=== PATIENT | female | born 1940 | race Caucasian/White ===

== ENCOUNTER 2021-06-17 14:15 | Inpatient (IN) | payer OTHER ==
[2021-06-17 16:18] LABS: BASO % 0.4 % (0-2.0); EOS % 0.1 % (0-4.5); HEMATOCRIT 35.7 % (32.4-45.2); HEMOGLOBIN 11.9 GM/dL (10.7-15.3); LYMPH % 12.6 % (8-40); MCH 29.7 pg (25.7-33.7); MCHC 33.2 g/dl (32.0-36.0); MEAN CELL VOLUME 89.4 fl (80-96); MEAN PLT VOLUME 9.2 fl (7.5-11.1); MONO % 10.5 % (3.8-10.2); NEUT % 76.4 % (42.8-82.8); PLATELET COUNT 138 10^3/uL (134-434); RDW 15.7 % (11.6-15.6); WHITE BLOOD COUNT 7.6 K/mm3 (4.0-10.0)
[2021-06-17 17:34] LABS: BLOOD UREA NITROGEN 54.3 mg/dL (7-18); CREATININE 1.4 mg/dL (0.55-1.3); PLATELET ESTIMATE DECREASED
[2021-06-17 17:35] LABS: ALBUMIN 2.7 g/dl (3.4-5.0); BILIRUBIN,TOTAL 1.1 mg/dL (0.2-1); CALCIUM 13.5 mg/dL (8.5-10.1); TOT PROT 6.6 g/dl (6.4-8.2)
[2021-06-17] MEDS ORDERED: SODIUM CHLORIDE 1,000 ML IV ONE (18:21)
[2021-06-17] MEDS ORDERED: ENOXAPARIN NA (PORCINE) 60 MG/0.6 ML DISP.SYRIN SQ SCH (21:00)
[2021-06-17] MEDS ORDERED: ENOXAPARIN NA (PORCINE) 60 MG/0.6 ML DISP.SYRIN SQ ONE ×2 (21:00→22:29)
[2021-06-17] MEDS ORDERED: ACETAMINOPHEN 325 MG TABLET (FP) PO PRN (23:28)
[2021-06-17] MEDS ORDERED: SODIUM CHLORIDE 1,000 ML IV SCH (23:30)
[2021-06-17] MEDS ORDERED: ENOXAPARIN NA (PORCINE) 30 MG/0.3 ML DISP.SYRIN SQ SCH (23:30)
[2021-06-18 00:53] LABS: URINE APPEARANCE CLEAR; URINE COLOR DK YELLOW
[2021-06-18 00:54] LABS: URINE BILIRUBIN NEGATIVE (NEGATIVE); URINE GLUCOSE (UA) NEGATIVE (NEGATIVE); URINE KETONE TRACE (NEGATIVE); URINE LEUK ESTERASE NEGATIVE (NEGATIVE); URINE NITRITE NEGATIVE (NEGATIVE); URINE PROTEIN TRACE (NEGATIVE)
[2021-06-18 01:08] LABS: MAGNESIUM 3.1 mg/dL (1.8-2.4); PHOSPHOROUS 3.6 mg/dL (2.5-4.9)
[2021-06-18] MEDS ORDERED: POLYETHYLENE GLYCOL (HEALTHYLAX) 3350 17 GM PACKET ONE ×2 (06:11→17:49)
[2021-06-18] MEDS: POLYETHYLENE GLYCOL (HEALTHYLAX) 3350 17 GM PACKET PO SCH ×2 (06:26→14:30)
[2021-06-18] MEDS: LEVOTHYROXINE NA 25 MCG TABLET (FP) PO SCH (07:05)
[2021-06-18] MEDS ORDERED: LEVOTHYROXINE NA 25 MCG TABLET (FP) ONE (07:16)
[2021-06-18 08:49] LABS: BLOOD UREA NITROGEN 49.9 mg/dL (7-18); CHLORIDE 111 mmol/L (98-107); CO2 25 mmol/L (21-32); CREATININE 1.1 mg/dL (0.55-1.3); GLUCOSE,RANDOM 81 mg/dL (74-106); SODIUM 147 mmol/L (136-145)
[2021-06-18 08:50] LABS: ALBUMIN 2.2 g/dl (3.4-5.0); ALK PHOS 75 U/L (45-117); BILIRUBIN,TOTAL 0.8 mg/dL (0.2-1); CALCIUM 11.2 mg/dL (8.5-10.1); MAGNESIUM 2.9 mg/dL (1.8-2.4); SGOT/AST 24 U/L (15-37); SGPT/ALT 10 U/L (13-61); TOT PROT 5.3 g/dl (6.4-8.2)
[2021-06-18 09:07] LABS: PHOSPHOROUS 3.1 mg/dL (2.5-4.9)
[2021-06-18 09:36] LABS: HEMOGLOBIN 9.6 GM/dL (10.7-15.3); RBC 3.23 M/mm3 (3.60-5.2); WHITE BLOOD COUNT 5.3 K/mm3 (4.0-10.0)
[2021-06-18 09:37] LABS: HEMATOCRIT 29.1 % (32.4-45.2); MCH 29.8 pg (25.7-33.7); MCHC 32.9 g/dl (32.0-36.0); MEAN CELL VOLUME 90.3 fl (80-96); MEAN PLT VOLUME 8.8 fl (7.5-11.1); PLATELET COUNT 99 10^3/uL (134-434)
[2021-06-18] MEDS: SODIUM CHLORIDE 1,000 ML IV SCH (10:00)
[2021-06-18] MEDS ORDERED: PIPERACILLIN/TAZOB 2.25 GM 2.25 GM in DEXTROSE 5%-WATER - 50 ML IVPB SCH (15:00)
[2021-06-18] MEDS ORDERED: PIPERACILLIN/TAZOB 2.25 GM 2.25 GM/50 ML BAG IVPB ONE (17:50)
[2021-06-19] MEDS ORDERED: ENOXAPARIN NA (PORCINE) 60 MG/0.6 ML DISP.SYRIN SQ ONE (00:34)
[2021-06-19] MEDS: POLYETHYLENE GLYCOL (HEALTHYLAX) 3350 17 GM PACKET PO SCH ×3 (00:57→15:05)
[2021-06-19] MEDS: ENOXAPARIN NA (PORCINE) 60 MG/0.6 ML DISP.SYRIN SQ SCH (00:57)
[2021-06-19] MEDS ORDERED: PIPERACILLIN/TAZOB 3.375 GM 3.375 GM/50 ML BAG IVPB ONE (05:40)
[2021-06-19] MEDS: PIPERACILLIN/TAZOB 3.375 GM 3.375 GM in DEXTROSE 5%-WATER - 50 ML IVPB SCH ×3 (05:48→17:33)
[2021-06-19 07:11] LABS: ALBUMIN 2.4 g/dl (3.4-5.0); BLOOD UREA NITROGEN 42.9 mg/dL (7-18); MAGNESIUM 2.6 mg/dL (1.8-2.4)
[2021-06-19 07:13] LABS: URIC ACID 8.8 mg/dL (2.6-7.2)
[2021-06-19 07:15] LABS: TOT PROT 5.8 g/dl (6.4-8.2)
[2021-06-19] MEDS: SODIUM CHLORIDE 1,000 ML IV SCH ×2 (07:37→15:05)
[2021-06-19] MEDS: LEVOTHYROXINE NA 25 MCG TABLET (FP) PO SCH (07:37)
[2021-06-19] MEDS ORDERED: DEXTROSE 5%-WATER - 50 ML IVPB ONE ×2 (08:57→17:30)
[2021-06-19] MEDS ORDERED: PIPERACILLIN/TAZOBACTAM 3.375 GM VIAL IVPB ONE ×2 (08:57→17:29)
[2021-06-19 14:02] LABS: BASO % 0.1 % (0-2.0); EOS % 0.1 % (0-4.5); HEMATOCRIT 32.9 % (32.4-45.2); HEMOGLOBIN 10.9 GM/dL (10.7-15.3); LYMPH % 11.4 % (8-40); MCH 29.9 pg (25.7-33.7); MCHC 33.2 g/dl (32.0-36.0); MEAN CELL VOLUME 90.1 fl (80-96); MONO % 8.3 % (3.8-10.2); NEUT % 80.1 % (42.8-82.8); PLATELET COUNT 129 10^3/uL (134-434); RBC 3.64 M/mm3 (3.60-5.2); RDW 16.3 % (11.6-15.6); WHITE BLOOD COUNT 5.8 K/mm3 (4.0-10.0)
[2021-06-19 15:38] VITALS: BMI 24.6
[2021-06-20] MEDS: POLYETHYLENE GLYCOL (HEALTHYLAX) 3350 17 GM PACKET PO SCH ×4 (04:38→21:47)
[2021-06-20] MEDS: ENOXAPARIN NA (PORCINE) 60 MG/0.6 ML DISP.SYRIN SQ SCH ×2 (04:40→21:48)
[2021-06-20] MEDS ORDERED: DEXTROSE 5%-WATER - 50 ML IVPB ONE ×3 (04:41→16:51)
[2021-06-20] MEDS ORDERED: PIPERACILLIN/TAZOBACTAM 3.375 GM VIAL IVPB ONE ×3 (04:41→16:51)
[2021-06-20] MEDS: PIPERACILLIN/TAZOB 3.375 GM 3.375 GM in DEXTROSE 5%-WATER - 50 ML IVPB SCH ×3 (04:51→17:01)
[2021-06-20] MEDS: LEVOTHYROXINE NA 25 MCG TABLET (FP) PO SCH (06:23)
[2021-06-20 08:22] LABS: BASO % 0.2 % (0-2.0); EOS % 0.3 % (0-4.5); HEMATOCRIT 31.3 % (32.4-45.2); HEMOGLOBIN 10.4 GM/dL (10.7-15.3); LYMPH % 12.2 % (8-40); MCH 29.8 pg (25.7-33.7); MCHC 33.1 g/dl (32.0-36.0); MONO % 7.8 % (3.8-10.2); NEUT % 79.5 % (42.8-82.8); PLATELET COUNT 105 10^3/uL (134-434); RBC 3.48 M/mm3 (3.60-5.2); RDW 15.8 % (11.6-15.6); WHITE BLOOD COUNT 4.5 K/mm3 (4.0-10.0)
[2021-06-20 08:34] LABS: ALBUMIN 2.4 g/dl (3.4-5.0); CALCIUM 11.4 mg/dL (8.5-10.1); MAGNESIUM 2.6 mg/dL (1.8-2.4)
[2021-06-20 08:37] LABS: CREATININE 1.1 mg/dL (0.55-1.3)
[2021-06-20 08:39] LABS: BILIRUBIN,TOTAL 1.1 mg/dL (0.2-1); TOT PROT 5.5 g/dl (6.4-8.2)
[2021-06-20 08:43] LABS: BLOOD UREA NITROGEN 33.9 mg/dL (7-18)
[2021-06-20] MEDS ORDERED: POTASSIUM CHLORIDE TABS 20 MEQ TABLET.ER (FP) PO ONE (09:05)
[2021-06-20] MEDS: SODIUM CHLORIDE 1,000 ML IV SCH (09:58)
[2021-06-20] MEDS: SODIUM CHLORIDE 0.45% 1,000 ML IV SCH (13:45)
[2021-06-20] MEDS: AMINO ACIDS/PROTEIN HYDROLYS 30 ML LIQUID.PKT PO SCH (18:31)
[2021-06-21] MEDS ORDERED: DEXTROSE 5%-WATER - 50 ML IVPB ONE ×2 (01:59→10:19)
[2021-06-21] MEDS ORDERED: PIPERACILLIN/TAZOBACTAM 3.375 GM VIAL IVPB ONE ×2 (01:59→10:19)
[2021-06-21] MEDS: PIPERACILLIN/TAZOB 3.375 GM 3.375 GM in DEXTROSE 5%-WATER - 50 ML IVPB SCH ×2 (03:14→12:27)
[2021-06-21 07:51] LABS: CALCIUM 10.7 mg/dL (8.5-10.1)
[2021-06-21 07:52] LABS: ALBUMIN 2.2 g/dl (3.4-5.0); BLOOD UREA NITROGEN 27.3 mg/dL (7-18)
[2021-06-21 07:56] LABS: BILIRUBIN,TOTAL 1.1 mg/dL (0.2-1); TOT PROT 5.1 g/dl (6.4-8.2)
[2021-06-21 08:01] LABS: MAGNESIUM 2.5 mg/dL (1.8-2.4)
[2021-06-21] MEDS ORDERED: METOPROLOL TARTRATE 25 MG TABLET (FP) PO SCH (10:00)
[2021-06-21] MEDS: LEVOTHYROXINE NA 25 MCG TABLET (FP) PO SCH (11:32)
[2021-06-21] MEDS: AMINO ACIDS/PROTEIN HYDROLYS 30 ML LIQUID.PKT PO SCH ×2 (12:30→16:41)
[2021-06-21] MEDS: POLYETHYLENE GLYCOL (HEALTHYLAX) 3350 17 GM PACKET PO SCH ×3 (12:31→22:27)
[2021-06-21] MEDS ORDERED: ACETAMINOPHEN 325 MG TABLET (FP) PO PRN (14:14)
[2021-06-21] MEDS: AMOX TR/POT CLAV 875MG/125MG TABLETS (FP) PO SCH (16:41)
[2021-06-21] MEDS: SODIUM CHLORIDE 0.45% 1,000 ML IV SCH ×2 (16:41→16:43)
[2021-06-21] MEDS ORDERED: PT OWN MED DRAWER 7, Y5N ONE (21:56)
[2021-06-21] MEDS: ENOXAPARIN NA (PORCINE) 60 MG/0.6 ML DISP.SYRIN SQ SCH (22:27)
[2021-06-21] MEDS: METOPROLOL TARTRATE 25 MG TABLET (FP) PO SCH (22:27)
[2021-06-22] MEDS: POLYETHYLENE GLYCOL (HEALTHYLAX) 3350 17 GM PACKET PO SCH ×3 (05:45→21:13)
[2021-06-22] MEDS: LEVOTHYROXINE NA 25 MCG TABLET (FP) PO SCH (06:00)
[2021-06-22] MEDS ORDERED: ZOLEDRONIC ACID 4 MG in SODIUM CHLORIDE 100 ML IVPB ONE ×2 (06:58→09:58)
[2021-06-22 07:56] LABS: BASO % 0.3 % (0-2.0); EOS % 0.5 % (0-4.5); HEMATOCRIT 26.9 % (32.4-45.2); LYMPH % 11.7 % (8-40); MCH 29.9 pg (25.7-33.7); MCHC 33.4 g/dl (32.0-36.0); MEAN CELL VOLUME 89.5 fl (80-96); MEAN PLT VOLUME 9.4 fl (7.5-11.1); MONO % 7.4 % (3.8-10.2); NEUT % 80.1 % (42.8-82.8); PLATELET COUNT 93 10^3/uL (134-434); RBC 3.01 M/mm3 (3.60-5.2); RDW 15.6 % (11.6-15.6); WHITE BLOOD COUNT 4.5 K/mm3 (4.0-10.0)
[2021-06-22 07:57] LABS: CHLORIDE 108 mmol/L (98-107); SODIUM 141 mmol/L (136-145)
[2021-06-22 07:59] LABS: CALCIUM 9.9 mg/dL (8.5-10.1)
[2021-06-22 08:00] LABS: ALBUMIN 2.1 g/dl (3.4-5.0); BLOOD UREA NITROGEN 22.4 mg/dL (7-18); CO2 23 mmol/L (21-32); GLUCOSE,RANDOM 77 mg/dL (74-106); MAGNESIUM 2.1 mg/dL (1.8-2.4)
[2021-06-22 08:03] LABS: CREATININE 0.7 mg/dL (0.55-1.3); SGOT/AST 31 U/L (15-37); SGPT/ALT 12 U/L (13-61)
[2021-06-22 08:04] LABS: BILIRUBIN,TOTAL 0.8 mg/dL (0.2-1)
[2021-06-22 08:05] LABS: TOT PROT 4.8 g/dl (6.4-8.2)
[2021-06-22 08:06] LABS: ALK PHOS 71 U/L (45-117)
[2021-06-22] MEDS: SODIUM CHLORIDE 0.45% 1,000 ML IV SCH (08:35)
[2021-06-22 08:36] LABS: ANION GAP 10 MMOL/L (8-16)
[2021-06-22] MEDS: AMINO ACIDS/PROTEIN HYDROLYS 30 ML LIQUID.PKT PO SCH ×2 (08:36→17:12)
[2021-06-22] MEDS: AMOX TR/POT CLAV 875MG/125MG TABLETS (FP) PO SCH ×2 (08:36→17:11)
[2021-06-22] MEDS: METOPROLOL TARTRATE 25 MG TABLET (FP) PO SCH ×2 (10:24→21:14)
[2021-06-22] MEDS: POTASSIUM CHLORIDE ORAL LIQUID 20 MEQ/15 ML PO SCH ×2 (10:24→15:44)
[2021-06-22] MEDS ORDERED: KCL 10 MEQ IVPB 10 MEQ/100 ML INFUS.BAG IVPB SCH (11:00)
[2021-06-22] MEDS ORDERED: POTASSIUM CHLORIDE TABS 20 MEQ TABLET.ER (FP) PO ONE (14:57)
[2021-06-22] MEDS: ENOXAPARIN NA (PORCINE) 60 MG/0.6 ML DISP.SYRIN SQ SCH (21:13)
[2021-06-22 22:02] LABS: BLOOD UREA NITROGEN 28.2 mg/dL (7-18); CALCIUM 11.3 mg/dL (8.5-10.1)
[2021-06-22 22:06] LABS: CREATININE 0.8 mg/dL (0.55-1.3)
[2021-06-22 23:45] LABS: PHOSPHOROUS 2.1 mg/dL (2.5-4.9)
[2021-06-23] MEDS: POLYETHYLENE GLYCOL (HEALTHYLAX) 3350 17 GM PACKET PO SCH ×3 (05:33→21:54)
[2021-06-23] MEDS: LEVOTHYROXINE NA 25 MCG TABLET (FP) PO SCH (06:00)
[2021-06-23 08:24] LABS: BASO % 0.3 % (0-2.0); EOS % 0.1 % (0-4.5); HEMOGLOBIN 9.3 GM/dL (10.7-15.3); LYMPH % 11.9 % (8-40); MCH 29.8 pg (25.7-33.7); MCHC 33.3 g/dl (32.0-36.0); MEAN CELL VOLUME 89.6 fl (80-96); MEAN PLT VOLUME 8.9 fl (7.5-11.1); MONO % 7.1 % (3.8-10.2); NEUT % 80.6 % (42.8-82.8); PLATELET COUNT 104 10^3/uL (134-434); RBC 3.13 M/mm3 (3.60-5.2); RDW 16.6 % (11.6-15.6); WHITE BLOOD COUNT 4.8 K/mm3 (4.0-10.0)
[2021-06-23 09:04] LABS: ALBUMIN 2.2 g/dl (3.4-5.0); BLOOD UREA NITROGEN 26.6 mg/dL (7-18); CALCIUM 11.1 mg/dL (8.5-10.1); MAGNESIUM 2.6 mg/dL (1.8-2.4)
[2021-06-23 09:07] LABS: CREATININE 0.7 mg/dL (0.55-1.3)
[2021-06-23 09:09] LABS: TOT PROT 5.1 g/dl (6.4-8.2)
[2021-06-23] MEDS: AMOX TR/POT CLAV 875MG/125MG TABLETS (FP) PO SCH ×2 (09:23→16:57)
[2021-06-23] MEDS: AMINO ACIDS/PROTEIN HYDROLYS 30 ML LIQUID.PKT PO SCH ×2 (09:23→16:57)
[2021-06-23] MEDS: METOPROLOL TARTRATE 25 MG TABLET (FP) PO SCH ×2 (09:24→21:54)
[2021-06-23] MEDS ORDERED: POTASSIUM CHLORIDE TABS 20 MEQ TABLET.ER (FP) PO ONE (10:39)
[2021-06-23] MEDS: POTASSIUM CHLORIDE TABS 20 MEQ TABLET.ER (FP) PO SCH ×2 (13:58→16:57)
[2021-06-23] MEDS: ENOXAPARIN NA (PORCINE) 60 MG/0.6 ML DISP.SYRIN SQ SCH (21:54)
[2021-06-24] MEDS: POLYETHYLENE GLYCOL (HEALTHYLAX) 3350 17 GM PACKET PO SCH ×3 (05:57→21:51)
[2021-06-24] MEDS: LEVOTHYROXINE NA 25 MCG TABLET (FP) PO SCH (06:02)
[2021-06-24 09:54] LABS: BASO % 0.4 % (0-2.0); EOS % 0.4 % (0-4.5); HEMATOCRIT 29.2 % (32.4-45.2); HEMOGLOBIN 9.6 GM/dL (10.7-15.3); LYMPH % 12.7 % (8-40); MCH 29.3 pg (25.7-33.7); MCHC 32.8 g/dl (32.0-36.0); MEAN CELL VOLUME 89.4 fl (80-96); MEAN PLT VOLUME 8.8 fl (7.5-11.1); MONO % 8.3 % (3.8-10.2); NEUT % 78.2 % (42.8-82.8); PLATELET COUNT 106 10^3/uL (134-434); RBC 3.27 M/mm3 (3.60-5.2); RDW 16.6 % (11.6-15.6); WHITE BLOOD COUNT 3.8 K/mm3 (4.0-10.0)
[2021-06-24] MEDS: AMINO ACIDS/PROTEIN HYDROLYS 30 ML LIQUID.PKT PO SCH ×2 (10:14→17:25)
[2021-06-24] MEDS: AMOX TR/POT CLAV 875MG/125MG TABLETS (FP) PO SCH ×2 (10:14→17:25)
[2021-06-24 10:17] LABS: ALBUMIN 2.1 g/dl (3.4-5.0); BLOOD UREA NITROGEN 25.3 mg/dL (7-18); CALCIUM 11.3 mg/dL (8.5-10.1); MAGNESIUM 2.6 mg/dL (1.8-2.4)
[2021-06-24] MEDS: METOPROLOL TARTRATE 25 MG TABLET (FP) PO SCH ×2 (10:17→21:59)
[2021-06-24 10:21] LABS: CREATININE 0.7 mg/dL (0.55-1.3)
[2021-06-24 10:22] LABS: BILIRUBIN,TOTAL 0.7 mg/dL (0.2-1)
[2021-06-24] MEDS ORDERED: PT OWN MED DRAWER 7, Y5N ONE (21:52)
[2021-06-24] MEDS: ENOXAPARIN NA (PORCINE) 60 MG/0.6 ML DISP.SYRIN SQ SCH (21:59)
[2021-06-24] MEDS: POTASSIUM CHLORIDE 10 MEQ in SODIUM CHLORIDE 0.45% 1,000 ML IVPB SCH (22:41)
[2021-06-25] MEDS: POLYETHYLENE GLYCOL (HEALTHYLAX) 3350 17 GM PACKET PO SCH ×3 (05:36→21:46)
[2021-06-25] MEDS: LEVOTHYROXINE NA 25 MCG TABLET (FP) PO SCH (06:46)
[2021-06-25 08:17] LABS: BASO % 0.5 % (0-2.0); EOS % 0.4 % (0-4.5); HEMATOCRIT 28.7 % (32.4-45.2); HEMOGLOBIN 9.6 GM/dL (10.7-15.3); LYMPH % 15.1 % (8-40); MCH 30.2 pg (25.7-33.7); MCHC 33.6 g/dl (32.0-36.0); MEAN CELL VOLUME 89.7 fl (80-96); MEAN PLT VOLUME 8.9 fl (7.5-11.1); MONO % 10.2 % (3.8-10.2); NEUT % 73.8 % (42.8-82.8); PLATELET COUNT 110 10^3/uL (134-434); RDW 16.4 % (11.6-15.6); WHITE BLOOD COUNT 3.3 K/mm3 (4.0-10.0)
[2021-06-25 08:43] LABS: CALCIUM 10.5 mg/dL (8.5-10.1)
[2021-06-25 08:44] LABS: ALBUMIN 2.1 g/dl (3.4-5.0); BLOOD UREA NITROGEN 19.7 mg/dL (7-18); MAGNESIUM 2.2 mg/dL (1.8-2.4)
[2021-06-25 08:47] LABS: CREATININE 0.7 mg/dL (0.55-1.3)
[2021-06-25 08:48] LABS: BILIRUBIN,TOTAL 0.7 mg/dL (0.2-1)
[2021-06-25] MEDS: AMINO ACIDS/PROTEIN HYDROLYS 30 ML LIQUID.PKT PO SCH ×2 (08:48→17:09)
[2021-06-25 08:49] LABS: TOT PROT 5.1 g/dl (6.4-8.2)
[2021-06-25] MEDS: AMOX TR/POT CLAV 875MG/125MG TABLETS (FP) PO SCH ×2 (08:49→17:09)
[2021-06-25] MEDS: METOPROLOL TARTRATE 25 MG TABLET (FP) PO SCH ×2 (09:28→22:09)
[2021-06-25] MEDS: POTASSIUM CHLORIDE 10 MEQ in SODIUM CHLORIDE 0.45% 1,000 ML IVPB SCH ×3 (14:01→22:37)
[2021-06-25] MEDS ORDERED: PT OWN MED DRAWER 7, Y5N ONE (21:49)
[2021-06-25] MEDS: ENOXAPARIN NA (PORCINE) 60 MG/0.6 ML DISP.SYRIN SQ SCH (22:09)
[2021-06-26] MEDS: POTASSIUM CHLORIDE 10 MEQ in SODIUM CHLORIDE 0.45% 1,000 ML IVPB SCH ×2 (05:47→11:57)
[2021-06-26] MEDS: LEVOTHYROXINE NA 25 MCG TABLET (FP) PO SCH (06:00)
[2021-06-26] MEDS: POLYETHYLENE GLYCOL (HEALTHYLAX) 3350 17 GM PACKET PO SCH ×3 (06:00→22:51)
[2021-06-26 07:17] LABS: HEMATOCRIT 28.3 % (32.4-45.2); HEMOGLOBIN 9.5 GM/dL (10.7-15.3); MCH 29.5 pg (25.7-33.7); MCHC 33.6 g/dl (32.0-36.0); MEAN CELL VOLUME 87.7 fl (80-96); MEAN PLT VOLUME 8.6 fl (7.5-11.1); PLATELET COUNT 95 10^3/uL (134-434); RBC 3.23 M/mm3 (3.60-5.2); RDW 16.8 % (11.6-15.6); WHITE BLOOD COUNT 3.2 K/mm3 (4.0-10.0)
[2021-06-26 07:33] LABS: BLOOD UREA NITROGEN 17.5 mg/dL (7-18); CALCIUM 9.4 mg/dL (8.5-10.1)
[2021-06-26 07:36] LABS: CREATININE 0.5 mg/dL (0.55-1.3)
[2021-06-26 07:38] LABS: BILIRUBIN,TOTAL 0.9 mg/dL (0.2-1); TOT PROT 4.9 g/dl (6.4-8.2)
[2021-06-26 09:07] LABS: ANISOCYTOSIS 0; HELMET CELLS 0; HOWELL-JOLLY BODIES 0; MACROCYTOSIS 0; OVALOCYTE 0; PLATELET ESTIMATE DECREASED; ROULEAU 0; SICKELED CELLS 0; TARGET CELLS 0; TEAR DROP CELLS 0; TOXIC GRANULATION 0
[2021-06-26] MEDS ORDERED: POTASSIUM CHLORIDE TABS 20 MEQ TABLET.ER (FP) PO SCH (09:15)
[2021-06-26] MEDS: AMINO ACIDS/PROTEIN HYDROLYS 30 ML LIQUID.PKT PO SCH ×2 (10:29→19:13)
[2021-06-26] MEDS: METOPROLOL TARTRATE 25 MG TABLET (FP) PO SCH ×2 (10:34→22:51)
[2021-06-26] MEDS: AMOX TR/POT CLAV 875MG/125MG TABLETS (FP) PO SCH (10:34)
[2021-06-26] MEDS ORDERED: POTASSIUM CHLORIDE ORAL LIQUID 20 MEQ/15 ML PO SCH (13:00)
[2021-06-26] MEDS: KCL 10 MEQ IVPB 10 MEQ/100 ML INFUS.BAG IVPB SCH ×3 (15:42→20:33)
[2021-06-26] MEDS ORDERED: KCL 10 MEQ IVPB 10 MEQ/100 ML INFUS.BAG IVPB SCH (20:30)
[2021-06-26] MEDS ORDERED: PT OWN MED DRAWER 7, Y5N ONE (22:48)
[2021-06-26] MEDS: ENOXAPARIN NA (PORCINE) 60 MG/0.6 ML DISP.SYRIN SQ SCH (22:51)
[2021-06-27] MEDS: POTASSIUM CHLORIDE 10 MEQ in SODIUM CHLORIDE 0.45% 1,000 ML IVPB SCH ×2 (01:38→15:37)
[2021-06-27] MEDS: LEVOTHYROXINE NA 25 MCG TABLET (FP) PO SCH (06:45)
[2021-06-27] MEDS: POLYETHYLENE GLYCOL (HEALTHYLAX) 3350 17 GM PACKET PO SCH ×3 (06:45→21:47)
[2021-06-27 07:20] LABS: BASO % 0.7 % (0-2.0); EOS % 0.5 % (0-4.5); HEMATOCRIT 26.3 % (32.4-45.2); HEMOGLOBIN 8.9 GM/dL (10.7-15.3); LYMPH % 14.8 % (8-40); MCH 30.2 pg (25.7-33.7); MCHC 33.8 g/dl (32.0-36.0); MEAN CELL VOLUME 89.4 fl (80-96); MEAN PLT VOLUME 9.1 fl (7.5-11.1); PLATELET COUNT 86 10^3/uL (134-434); RBC 2.94 M/mm3 (3.60-5.2); RDW 16.9 % (11.6-15.6); WHITE BLOOD COUNT 3.1 K/mm3 (4.0-10.0)
[2021-06-27 07:40] LABS: ALBUMIN 1.8 g/dl (3.4-5.0); CALCIUM 9.7 mg/dL (8.5-10.1)
[2021-06-27 07:41] LABS: BLOOD UREA NITROGEN 19.6 mg/dL (7-18)
[2021-06-27 07:42] LABS: CREATININE 0.6 mg/dL (0.55-1.3); PHOSPHOROUS 2.5 mg/dL (2.5-4.9)
[2021-06-27 07:43] LABS: BILIRUBIN,TOTAL 0.8 mg/dL (0.2-1); TOT PROT 4.5 g/dl (6.4-8.2)
[2021-06-27] MEDS: METOPROLOL TARTRATE 25 MG TABLET (FP) PO SCH ×2 (09:39→21:45)
[2021-06-27] MEDS: AMINO ACIDS/PROTEIN HYDROLYS 30 ML LIQUID.PKT PO SCH ×2 (09:40→17:03)
[2021-06-27] MEDS: BACITRACIN 15 GM TUBE TOPICAL OINTMENT TP SCH ×2 (12:13→21:47)
[2021-06-27] MEDS: ENOXAPARIN NA (PORCINE) 60 MG/0.6 ML DISP.SYRIN SQ SCH (21:45)
[2021-06-28] MEDS: POTASSIUM CHLORIDE 10 MEQ in SODIUM CHLORIDE 0.45% 1,000 ML IVPB SCH (02:58)
[2021-06-28] MEDS: LEVOTHYROXINE NA 25 MCG TABLET (FP) PO SCH (06:32)
[2021-06-28] MEDS: POLYETHYLENE GLYCOL (HEALTHYLAX) 3350 17 GM PACKET PO SCH ×2 (06:33→13:15)
[2021-06-28 07:29] LABS: BASO % 0.8 % (0-2.0); EOS % 0.8 % (0-4.5); HEMATOCRIT 26.6 % (32.4-45.2); HEMOGLOBIN 8.9 GM/dL (10.7-15.3); LYMPH % 15.3 % (8-40); MCH 29.9 pg (25.7-33.7); MCHC 33.6 g/dl (32.0-36.0); MEAN PLT VOLUME 9.3 fl (7.5-11.1); MONO % 8.2 % (3.8-10.2); NEUT % 74.9 % (42.8-82.8); PLATELET COUNT 73 10^3/uL (134-434); RBC 2.99 M/mm3 (3.60-5.2); RDW 17.3 % (11.6-15.6); WHITE BLOOD COUNT 3.2 K/mm3 (4.0-10.0)
[2021-06-28 08:01] LABS: BLOOD UREA NITROGEN 17.2 mg/dL (7-18); CALCIUM 9.8 mg/dL (8.5-10.1)
[2021-06-28 08:02] LABS: ALBUMIN 1.9 g/dl (3.4-5.0); MAGNESIUM 2.2 mg/dL (1.8-2.4)
[2021-06-28 08:05] LABS: CREATININE 0.4 mg/dL (0.55-1.3)
[2021-06-28 08:06] LABS: BILIRUBIN,TOTAL 0.7 mg/dL (0.2-1); TOT PROT 4.6 g/dl (6.4-8.2)
[2021-06-28] MEDS: METOPROLOL TARTRATE 25 MG TABLET (FP) PO SCH (10:28)
[2021-06-28] MEDS: AMINO ACIDS/PROTEIN HYDROLYS 30 ML LIQUID.PKT PO SCH (10:28)
[2021-06-28] MEDS: BACITRACIN 15 GM TUBE TOPICAL OINTMENT TP SCH (10:28)
[2021-06-28 14:22] VITALS: BP 112/55; PULSE 89; TEMP 98.4
== END 2021-06-28 15:33 | DRG 871 ==
LOC: JER 14:15 → JERBED 19:02 → J4W 06-19 06:40 → J7W 06-21 14:02
PROVIDERS: ADMIT Internal Medicine; ATTEND Nurse Practitioner Family
DX: A41.1 Sepsis due to other specified staphylococcus (principal); G93.41 Metabolic encephalopathy; N17.9 Acute kidney failure, unspecified; C85.90 Non-Hodgkin lymphoma, unspecified, unspecified site; I82.401 Acute embolism and thrombosis of unspecified deep veins of right lower extremity; E44.0 Moderate protein-calorie malnutrition; E87.0 Hyperosmolality and hypernatremia; C49.9 Malignant neoplasm of connective and soft tissue, unspecified; E86.0 Dehydration; E83.52 Hypercalcemia; F03.90 Unspecified dementia, unspecified severity, without behavioral disturbance, psychotic disturbance, mood disturbance, and anxiety; S11.90XA Unspecified open wound of unspecified part of neck, initial encounter; R62.7 Adult failure to thrive; W19.XXXA Unspecified fall, initial encounter; Y93.9 Activity, unspecified; Y92.89 Other specified places as the place of occurrence of the external cause; Y99.9 Unspecified external cause status; E87.6 Hypokalemia; E03.9 Hypothyroidism, unspecified; E87.5 Hyperkalemia; Z68.24 Body mass index [BMI] 24.0-24.9, adult; E78.5 Hyperlipidemia, unspecified
CPT/HCPCS: 36415; 70450-TC; 70490-TC; 71045-TC-FY; 72125-TC; 74176-TC; 76775-TC; 80048; 80053; 80061; 81003; 82652; 83615; 83735; 83970; 84100; 84155; 84156; 84165; 84436; 84443; 84479; 84480; 84550; 85025; 85027; 85651; 85730; 86140; 86769; 87040; 87070; 87086; 87205; 93005; 93010; 93306-TC; 93971-TC; 97116-GP; 97162-GP; 99285-25; C9803; U0003; U0005